=== PATIENT | male | born 1980 | race Caucasian/White ===

== ENCOUNTER 2021-03-29 07:04 | Day surgery (SDC) | payer OTHER ==
[2021-03-29] VITALS (10 sets, daily range): BP systolic 98–139; BP diastolic 46–87
[~2021-03-29] VITALS: Ht 185.4 cm; Wt 90.9 kg
--- NOTE | 2021-03-29 07:40 | NUR ---
PATIENT TO MED SURG ROOM 276 AMBULATORY[address] VS OBTAINED. DR GRIFFIN NOTIFIED. NEW ORDERS RECIEVED. CONSENT OBTAINED FOR ANR PROCEDURE. ADMISSION ASSESSMENT COMPLETED. IV ESTABLISHED. WILL CONTINUE TO MONITOR
[2021-03-29 09:14] LABS: HEMOGLOBIN 14.8 g/dl (14.0-18.0); IMMATURE GRANULOCYTES 0.2 % (0.0-5.0); MEAN CELL VOLUME 87.9 fL CALC (80.0-100.0); MEAN CORPUSCULAR HGB CONC 35.2 g/dL CAL (32.0-36.0); NEUT# 2.68 thou/uL (1.82-7.42); RED BLOOD COUNT 4.78 mill/uL (4.70-6.10)
--- NOTE | 2021-03-29 09:15 | NUR ---
DR. GRIFFIN AT BEDSIDE.
[2021-03-29 09:25] LABS: ALBUMIN 4.6 g/dL (3.2-5.0); ALKALINE PHOSPHATASE 75 u/l (38-126); ANION GAP 13 (6-22 (CALC)); BILIRUBIN, TOTAL 1.2 mg/dL (0.0-1.4); BUN 19 mg/dL (9-20); BUN/CREATININE RATIO 19 (12-20 (CALC)); CARBON DIOXIDE 25 mmol/l (22-30); CHLORIDE 103 mmol/l (95-108); GFR > 60 ML/MIN (>=60 (CALC)); GFR FOR AFR.AMER. > 60 ML/MIN (>=60 (CALC)); POTASSIUM 4.2 mmol/l (3.5-5.1); SGOT/AST 50 u/l (17-59); SODIUM 137 mmol/l (137-146); TOTAL PROTEIN 7.7 g/dL (6.3-8.2)
--- NOTE | 2021-03-29 09:48 | NUR ---
VITAL SIGNS REASSESSED DR GRIFFIN NOTIFIED NO NEW ORDERS RECEIVED AT THIS TIME.
--- NOTE | 2021-03-29 10:31 | NUR ---
PT TRANSFERED VIA BED OFF MS UNIT FOR ANR PROCEDURE.
[2021-03-29] MEDS ORDERED: SEROQUEL100 MG PO (10:43)
[2021-03-29] MEDS ORDERED: INDERAL 40MG TA40 MG PO (10:43)
[2021-03-29] MEDS ORDERED: TOPAMAX50 M1 PO (10:44)
[2021-03-29] MEDS ORDERED: CLONIDINE0.1 MG PO (13:27)
[2021-03-29] MEDS ORDERED: KLONOPIN0.5 MG PO (13:28)
--- NOTE | 2021-03-29 15:28 | NUR ---
PT ARRIVES TO UNIT ON BED, ACCOMPANIED BY ANR RN. REPORT RECEIVED AT BEDSIDE.
--- NOTE | 2021-03-29 17:40 | NUR ---
PT RESTING IN BED. NO APPARENT DISTRESS NOTED. VSS. PT REMAINS DROWSY, EASILY ORIENTED. PT ABLE TO VERBALIZE NEEDS. WARM BLANKETS PROVIDED UPON REQUEST. CALL LIGHT WITHIN REACH. WILL CONTINUE TO MONITOR.
--- NOTE | 2021-03-29 18:58 | NUR ---
RECEIVED REPORT FROM RICK AIKEN. PATIENT STABLE. RESTING WITH EYES CLOSED. RESPIRATIONS EVEN AND UNLABORED. IVF LR INFUSING TO #20RH AT 75ML/HR. PATIENT BROUGHT UP WITH FLUIDS INFUSING AT THAT RATE. O2 2L VIA N/C IN PLACE. BED IN LOW POSITION. CALL LIGHT WITHIN REACH. BED ALARM ON.
--- NOTE | 2021-03-29 19:30 | NUR ---
PATIENT AROUSING AGGITATED. ATIVAN 2MG IV GIVEN WITH SOME POSITIVE EFFECT. PATIENT STILL RESTLESS.
--- NOTE | 2021-03-29 20:30 | NUR ---
IVF INCREASED TO 100ML/HR PER ORDER.
--- NOTE | 2021-03-29 21:06 | NUR ---
PATIENT HAD 300CC CLEAR YELLOW URINE OUT. MOTHER CALLED FOR UPDATE. ASKS THAT SOMEONE TEXT HER TO LET HER KNOW WHEN HE WILL BE DISCHARGED. NAME AND PHONE NUMBER GOTTEN. PATIENT REPORTS "HAVING A HARD TIME BUT DOING OK."
--- NOTE | 2021-03-29 21:31 | NUR ---
PATIENT AWAKE ASKING FOR URINAL AND TV CONTROLS. URINAL AND CONTROL GIVEN TO PATIENT. 500cc URINE OUT. TV ON WITH VOLUME LOW. DIET COKE GOTTEN FOR PATIENT.
--- NOTE | 2021-03-29 22:34 | NUR ---
2300 MEDICATIONS GIVEN/ADMINISTERED WITHOUT DIFFICULTY.
--- NOTE | 2021-03-30 00:36 | NUR ---
PATIENT REQUESTED MEDICATION TO HELP HIME SLEEP. PATIENT NORMALLY TAKES 100MG SEROQUEL QHS. DR. GRIFFIN CALLED MULTIPLE TIMES WITHOUT ANSWER/RESPONSE, ABHAY LANG CALLED MULTIPLE TIMES WITHOUT ANSWER/RESPONSE. WILL CONTINUE TO ATTEMPT TO NOTIFY PROVIDER OF REQUEST. PATIENT IS RESTING IN BED, RESTLESS YET COOPERATIVE. BED IN LOW POSITION. CALL LIGHT WITHIN REACH. BED ALARM ACTIVATED.
--- NOTE | 2021-03-30 01:31 | NUR ---
CONTINUING TO ATTEMTP TO CONTACT PROVIDERS ELIAS AND ABHAY LANG WITHOUT SUCCESS AT [phone] WITHOUT A RESPONSE. WILL CONTINUE TO ATTEMPT TO CALL PROVIDERS. PATIENT RESTING IN BED, RESTLESS, IVF INFUSING, BED ALARM ACTIVATED, BED IN LOW POSITION. CALL LIGHT WITHIN REACH.
--- NOTE | 2021-03-30 02:52 | NUR ---
2 mg Ativan IV given for aggitation and inability to sleep. Attempted to call provider at [phone] without success. Patient stable. Bed alarm activated. Bed in low position. Call light within reach.
[2021-03-30 03:30] VITALS: BP 132/81
--- NOTE | 2021-03-30 03:50 | NUR ---
0400 meds administered. Informed patient that i was not able to get hold of provider for medication for sleep. Patient verbalized understanding. VSS. Bed in low position. Call light within reach. Bed alarm activated.
--- NOTE | 2021-03-30 04:05 | NUR ---
Dr. Flores responded at [phone]. This nurse left message for order clarification at 0400. Awaiting response. Patient resting quietly, no acute distress observed.
[2021-03-30 05:24] LABS: ALBUMIN 4.3 g/dL (3.2-5.0); ALKALINE PHOSPHATASE 77 u/l (38-126); ANION GAP 13 (6-22 (CALC)); BILIRUBIN, TOTAL 1.2 mg/dL (0.0-1.4); BUN 14 mg/dL (9-20); BUN/CREATININE RATIO 14 (12-20 (CALC)); CARBON DIOXIDE 21 mmol/l (22-30); CHLORIDE 104 mmol/l (95-108); GFR > 60 ML/MIN (>=60 (CALC)); GFR FOR AFR.AMER. > 60 ML/MIN (>=60 (CALC)); MAGNESIUM 2.2 mg/dL (1.6-2.3); SGOT/AST 42 u/l (17-59); SODIUM 135 mmol/l (137-146)
[2021-03-30 05:34] LABS: POTASSIUM 3.3 mmol/l (3.5-5.1)
--- NOTE | 2021-03-30 05:44 | NUR ---
PATIENT HAD TOTAL 1950 CC YELLOW URINE OUT THIS SHIFT. IVF CONTINUE AT 100 ML/HR.
--- NOTE | 2021-03-30 07:00 | NUR ---
RECIEVED REPORT FROM BRANDIE GARDNER
--- NOTE | 2021-03-30 07:22 | NUR ---
PT SLEEPING IN LOW FOWLERS POSITION. RESPIRATIONS ARE EVEN AND UNLABORED WITH NO DISTRESS NOTED. IVF INFUSING PER ORDER. NO SIGNS OF ANY PAINS OR DISCOMFORTS. ALL SFAETY PRECAUTIONS ARE IN PLACE WITH CALL LIGHT IN REACH. WILL CONTINUE TO MONITOR
[2021-03-30 07:50] VITALS: BP 122/75
--- NOTE | 2021-03-30 07:50 | NUR ---
PT AWAKENS TO SPEECH. PT IS A/O X3 BUT VERY DROWSY. ASSESSMENT AND VITALS COMPLETED. BP 122/75, HR 70, O2 95% ON ROOM AIR. RESPIRATIONS ARE EVEN AND UNLABORED. LUNG SOUNDS ARE CLEAR. HEART RHYTHM NORMAL. BOWEL SOUNDS ARE ACTIVE. #20G RH INFUSING WITH IVF PER ORDER, SITE REMAINS HEALTHY AND PATENT. #20G LH FLUSHED, SITE APPEARS HEALTHY. SKIN INTACT. PT DENIES OF ANY PAINS OR DISCOMFORTS. PT AWAKENS ENOUGH TO TAKE PILLS, TOLERATED WELL. PT REPOSITIONED FOR BREAKFAST. TRAY ACCOMIDED FOR PT. PT FELL BACK ASLEEP. ALL SAFETY PRECAUTIONS ARE IN PLACE WITH CALL LIGHT IN REACH. BED ALARM ACTIVE. WILL CONTINUE TO MONITOR
[2021-03-30 07:56] VITALS: BP 122/75
--- NOTE | 2021-03-30 09:19 | NUR ---
ORDERS FOR 80 MEQ PO POTASSIUM X1 DOSE FOR K REUSLTING IN 3.3. ORDERS FAXED TO PHARMACY.
--- NOTE | 2021-03-30 10:00 | NUR ---
PT INCONT OF STOOL. ASSISTED TO BATHROOM AND ASSISTED WITH SHOWER. NEW SHEETS PROVIEDED. PT ASSITED BACK INTO BED. PT DENIES OF ANY NEEDS. ALL SAFETY PRECAUTIONS ARE IN PLACE. BED ALARM ACTIVE. WILL CONTINUE TO MONITOR
--- NOTE | 2021-03-30 10:13 | NUR ---
SCHEDULED MEDICATIONS ADMINISTERED. PT TOLERATED WELL. REPORTS OF NAUSEA, BOB ADMINISTERED.
--- NOTE | 2021-03-30 11:05 | NUR ---
UPDATE PROVIDED TO MOTHER SUJIT.
--- NOTE | 2021-03-30 12:06 | NUR ---
PT SLEEPING IN SEMI FOWLERS POSITION. RESPIRATIONS ARE EVEN AND UNLABORED. IVF INFUSING PER ORDER, SITE REMAINS HEALTHY AND PATENT. NO SIGNS OF ANY PAINS OR DISCOMFORTS. ALL SAFETY PRECAUTIONS ARE IN PLACE. WILL CONTINUE TO MONITOR.
--- NOTE | 2021-03-30 16:16 | NUR ---
PT RESTING IN SEMI FOWLERS POSITION. REPSIRATIONS ARE EVEN AND UNLABORE DIWTH NO DISTRESS. PT DRESSES, WAITING FOR TRANSPORTATION HOME. PT DENIES OF ANY PAINS OR DISCOMFORTS AT THIS TIME. ALL SAFETY PRECAUTIONS ARE IN PLACE WITH CALL LIGHT IN REACH. WILL CONTNUE TO MONITOR.
--- NOTE | 2021-03-30 16:33 | NUR ---
Discharge instructions given. Patient verbalizes understanding of same. Discharged in stable condition via Wheelchair to Home with *Other. All belongings sent with pt. PT DC HOME VIA WHEELCHAIR ACCOMPAINED BY BRANDIE REY IN STABLE CONDITION WITH ALL DC INSTRUCTIONS AND BELONGINGS
== END 2021-03-30 16:30 | disposition home or self-care (01) | DRG 897 ==
LOC: ANR 07:04 → MS2 07:11 → ANR 10:00
PROVIDERS: ATTEND Anesthesiology
DX: F11.20 Opioid dependence, uncomplicated (principal)
CPT/HCPCS: J2060; J2354; J3475